=== PATIENT | male | born 1955 | race Caucasian/White ===

== ENCOUNTER 2016-06-13 17:39 | Inpatient (IN) | payer OTHER ==
[~2016-06-13] VITALS: Ht 182.9 cm; Wt 102.0 kg
[~2016-06-13 17:39] MED LIST: TYLENOL WITH C1 EACH PO
[2016-06-13 18:23] LABS: EOSINOPHIL (%) 2.6 % (0-5); EOSINOPHIL COUNT 0.2 K/uL (0-0.3); HEMATOCRIT 42.9 % (38.0-50.0); IMMATURE GRANULOCYTE (%) 0.5 % (0.0-0.7); IMMATURE GRANULOCYTE COUNT 0.4 K/uL; LYMPHOCYTE COUNT 1.3 K/uL (1.0-2.8); MCHC 34.5 G/DL (30.0-36.0); MCV 92.9 FL (86-99); MONOCYTE COUNT 0.6 K/uL (0-0.8); NEUTROPHIL (%) 73.3 % (45-76); NEUTROPHIL COUNT 6.1 K/uL (1.8-6.4); PLATELET COUNT 133 K/uL (156-360); RBC DIS.WIDTH-SD 43.2 % (39-53); RED BLOOD COUNT 4.62 M/uL (4.00-5.50); WHITE BLOOD COUNT 8.3 K/uL (4.1-10.2)
[2016-06-13 18:34] LABS: D-DIMER ELISA 0.48 mg/L FEU (< 0.57)
[2016-06-13 18:37] LABS: CHLORIDE 106 mEq/L (99-109); POTASSIUM 4.1 mEq/L (3.7-5.4); SODIUM 141 mEq/L (136-147)
[2016-06-13 18:39] LABS: GLUCOSE 276 mg/dL (70-99)
[2016-06-13 18:41] LABS: ANION GAP 10 MEQ/L (2-14); TOTAL BILIRUBIN 0.7 mg/dL (0.0-1.0)
[2016-06-13 18:43] LABS: ALKALINE PHOSPHATASE 58 IU/L (3-129); GFR ESTIMATE (CALCULATED) > 59 mL/min/
[2016-06-13 18:44] LABS: UREA NITROGEN (BUN) 16 mg/dL (9-23)
[2016-06-13 18:47] LABS: TROP-I INTERPRETATION NEGATIVE; TROPONIN-I 0.03 ng/mL (0.0-0.30)
[2016-06-13 22:00] VITALS: BP 154/88
[2016-06-13 23:54] VITALS: BP 150/87
[2016-06-14 03:55] VITALS: BP 169/89
[2016-06-14 06:53] LABS: ANION GAP 10 MEQ/L (2-14); CHLORIDE 101 MEQ/L (99-109); GFR ESTIMATE (CALCULATED) > 59 mL/min/; GLUCOSE 315 mg/dL (70-99); POTASSIUM 4.1 MEQ/L (3.7-5.4); SAMPLE HEMOLYSIS CHECK 0; SAMPLE ICTERIC CHECK 0; SAMPLE LIPEMIA CHECK 0; SODIUM 139 MEQ/L (136-147); UREA NITROGEN (BUN) 16 mg/dL (9-23)
[2016-06-14 07:30] VITALS: BP 168/109
[2016-06-14 11:00] VITALS: BP 154/97
[2016-06-14 14:05] LABS: Estimated Average Glucose 243 mg/dL (70-123); HEMOGLOBIN A1c (GLYCOHEMOGLOB) 10.1 % HGB (Below 5.7)
[2016-06-14 15:50] VITALS: BP 141/88
[2016-06-14 16:57] LABS: TROP-I INTERPRETATION NEGATIVE; TROPONIN-I 0.03 ng/mL (0.0-0.30)
[2016-06-14 19:20] VITALS: BP 139/82
[2016-06-14 21:00] LABS: POINT-OF-CARE METER ID UU13113698
[2016-06-14 23:58] VITALS: BP 130/77
[2016-06-15] VITALS (7 sets, daily range): BP systolic 120–154; BP diastolic 68–89
[2016-06-15 07:09] LABS: HEMATOCRIT 44.6 % (38.0-50.0); MCH 33.2 PG (29.0-34.0); MCHC 34.8 G/DL (30.0-36.0); MCV 95.5 FL (86-99); MEAN PLAT.VOLUME 12.5 uM^3 (9.0-12.4); PLATELET COUNT 140 K/uL (156-360); RBC DIS.WIDTH-SD 44.8 % (39-53); RED BLOOD COUNT 4.67 M/uL (4.00-5.50); WHITE BLOOD COUNT 8.3 K/uL (4.1-10.2)
[2016-06-15 07:32] LABS: ANION GAP 8 MEQ/L (2-14); CHLORIDE 101 MEQ/L (99-109); GFR ESTIMATE (CALCULATED) > 59 mL/min/; GLUCOSE 261 mg/dL (70-99); HDL CHOLESTEROL 25 MG/DL (Desirable>=40); LDL CHOLESTEROL 75 mg/dL (Desirable<100); NON-HDL CHOLESTEROL 104 mg/dL (Desirable<160); POTASSIUM 4.1 MEQ/L (3.7-5.4); SAMPLE HEMOLYSIS CHECK 0; SAMPLE ICTERIC CHECK 0; SAMPLE LIPEMIA CHECK 0; SODIUM 138 MEQ/L (136-147); TOTAL CHOLESTEROL 129 mg/dL (Desirable<200); TRIGLYCERIDES 145 MG/DL (Normal: <150); UREA NITROGEN (BUN) 16 mg/dL (9-23)
[2016-06-15 08:16] LABS: POINT-OF-CARE USER ID ENVKC36
[2016-06-15 11:40] LABS: POINT-OF-CARE USER ID ENVKC36
[2016-06-15 16:25] LABS: POINT-OF-CARE METER ID UU13113698
[2016-06-16 04:07] VITALS: BP 119/67
[2016-06-16 07:25] VITALS: BP 144/87
[2016-06-16 07:57] LABS: POINT-OF-CARE METER ID UU13113781
[2016-06-16] MEDS ORDERED: ASPIR-LOW81 MG PO (10:02)
[2016-06-16] MEDS ORDERED: LOPRESSOR50 MG PO (10:02)
[2016-06-16] MEDS ORDERED: LISINOPRIL40 MG PO (10:02)
[2016-06-16] MEDS ORDERED: FUROSEMIDE20 MG PO (10:02)
[2016-06-16] MEDS ORDERED: METFORMIN HCL850 MG PO (10:02)
[2016-06-16 12:31] VITALS: BP 134/83
== END 2016-06-16 13:30 | disposition home health service (06) | DRG 292 ==
LOC: EME 17:39 → EDOF 19:29 → 4EAST 19:29
PROVIDERS: Emergency Medicine; Internal Medicine; Internal Medicine Cardiovascular Disease; Physician Assistant
DX: I50.21 Acute systolic (congestive) heart failure (principal); I42.9 Cardiomyopathy, unspecified; I11.0 Hypertensive heart disease with heart failure; E11.65 Type 2 diabetes mellitus with hyperglycemia; I44.7 Left bundle-branch block, unspecified; R94.31 Abnormal electrocardiogram [ECG] [EKG]; F41.9 Anxiety disorder, unspecified; I27.2 Other secondary pulmonary hypertension; E66.9 Obesity, unspecified; Z91.19 Patient's noncompliance with other medical treatment and regimen; Z68.30 Body mass index [BMI] 30.0-30.9, adult; Z79.84 Long term (current) use of oral hypoglycemic drugs; Z82.49 Family history of ischemic heart disease and other diseases of the circulatory system; Z83.3 Family history of diabetes mellitus; Z80.8 Family history of malignant neoplasm of other organs or systems
CPT/HCPCS: 71010; 80048; 80053; 80061; 82948; 83036; 83735; 83880; 84100; 84484; 85025; 85027; 85379; 93005; 93306; 99281; 99285; G0378; J1650; J1815; J1940

== ENCOUNTER 2016-07-21 10:04 | Day surgery (SDC) | payer OTHER ==
[~2016-07-21] VITALS: Ht 180.3 cm; Wt 99.0 kg
[~2016-07-21 10:04] MED LIST changes: +ASPIR-LOW81 MG PO; +FUROSEMIDE20 MG PO; +LISINOPRIL40 MG PO; +LOPRESSOR50 MG PO; +METFORMIN HCL850 MG PO; +METOPROLOL TART75 MG PO
[2016-07-21 11:15] LABS: POINT-OF-CARE METER ID UU13113696
== END 2016-07-21 17:10 | disposition home or self-care (01) ==
LOC: CATH 10:04
PROVIDERS: Internal Medicine Cardiovascular Disease
DX: I25.10 Atherosclerotic heart disease of native coronary artery without angina pectoris (principal); I42.9 Cardiomyopathy, unspecified; E11.9 Type 2 diabetes mellitus without complications; I11.0 Hypertensive heart disease with heart failure; I50.9 Heart failure, unspecified; E66.9 Obesity, unspecified; Z68.31 Body mass index [BMI] 31.0-31.9, adult; Z79.82 Long term (current) use of aspirin; Z79.4 Long term (current) use of insulin
CPT/HCPCS: 82948; C1769; C1887; J1644; J2250; J3010